=== PATIENT | male | born 1960 | race Two or more races ===

== ENCOUNTER 2025-06-07 01:02 | Emergency (ER) | payer OTHER, MEDICAID ==
[~2025-06-07] VITALS: Ht 170.2 cm; Wt 100.1 kg
[2025-06-07 02:14] LABS: Urine Protein, UAD Negative (Negative)
[2025-06-07] MEDS ORDERED: ZOFR4T PO (02:19)
[2025-06-07] MEDS ORDERED: IBUP-1455 PO (02:19)
[2025-06-07] MEDS ORDERED: CIPR-173 PO (02:19)
[2025-06-07] MEDS ORDERED: HYDR-4902 PO (02:19)
--- NOTE | 2025-06-07 02:20 | ED.PDOC ---
General HPI Comments This patient is a pleasant but morbidly obese 65-year-old male who arrives the ED today for evaluation of left-sided flank pain radiating into his abdominal region for the past two days. Patient states the symptoms came on and has been relatively unrelenting. Patient denies any fever nausea or vomiting. Patient does complain of flank pain concerns and mild urinary discomfort. Patient was hypertensive on arrival. Chief Complaint: Flank Pain Time Seen by MD: 01:28 Reviewed notes: Nurses Notes Allergies: Coded Allergies: NO KNOWN ALLERGIES (Unverified , 06/07/25) Home Meds Active Scripts Hydrocodone-Acetaminophen (Hydrocodone Bitartrate/AC 5-325 mg) 1 Tab Tab, 1 TAB PO Q6HP PRN, #10 TAB Prov:DIPESH VALENCIA [facility] 06/07/25 Ibuprofen Micronized (Ibuprofen) 800 Mg Tab, 800 MG PO Q8HP PRN, #20 TAB Prov:DIPESH VALENCIA [facility] 06/07/25 Ondansetron Odt 4MG Tab (ZOFRAN PO) 4 Mg Tb, 4 MG PO Q6HP PRN, #15 TAB ODT TAB-DISSOLVE IN MOUTH, THEN SWALLOW Prov:DIPESH VALENCIA [facility] 06/07/25 Ciprofloxacin Hcl (Cipro) 500 Mg Tab, 1 TAB PO BID for 7 Days, #14 TAB Prov:DIPESH VALENCIA [facility] 06/07/25 Information Source: Patient Mode of Arrival: Ambulatory Severity: Moderate Timing: Days Duration: Since onset Prehospital treatment: None Onset: Spontaneous Symptoms: Dysuria, Other (Left-sided flank pain) Location: Abdomen, (L)Flank Penile discharge: None Modifying factors: None associated signs and symptoms: Abdominal Pain, Flank Pain Past Medical History PAST MEDICAL HISTORY: Denies Surgical History: Denies all surgeries Family History Family History: Reviewed,noncontributory to illness, No family hx of Cancer, No family hx of DM, No family hx of Heart lalo, No family hx of HTN, No family hx ofKidney lalo, No family hx of Liver lalo, No family hx of Lung lalo, No family hx of Stroke Social History Smoker: Non-Smoker Alcohol: Denies ETOH Use Drugs: Denies Drug Use Lives In: Home Constitutional: denies: chills, diaphoresis, fatigue, fever, malaise, sweats, weakness, others EENTM: denies: blurred vision, double vision, ear bleeding, ear discharge, ear drainage, ear pain, ear ringing, eye pain, eye redness, hearing loss, mouth pain, mouth swelling, nasal discharge, nose bleeding, nose congestion, nose pain, photophobia, tearing, throat pain, throat swelling, voice changes, others Respiratory: denies: cough, hemoptysis, orthopnea, SOB at rest, shortness of breath, SOB with excertion, stridor, wheezing, others Cardiovascular: denies: chest pain, dizzy spells, diaphoresis, Dyspnea on exertion, edema, irregular heart beat, left arm pain, lightheadedness, palpitati ons, PND, syncope, others Gastrointestinal: reports: abdominal pain; denies: abdomen distended, blood streaked bowels, constipated, diarrhea, dysphagia, difficulty swallowing, hematemesis, melena, nausea, poor appetite, poor fluid intake, rectal bleeding, rectal pain, vomiting, others Genitourinary: reports: flank pain; denies: burning, dysuria, frequency, hematuria, incontinence, penile discharge, penile sore, pain, testicle pain, testicle swelling, urgency, others Neurological: denies: dizziness, fainting, headache, left sided numbness, left sided weakness, numbness, paresthesia, pre-existing deficit, right sided numbness, right sided weakness, seizure, speech problems, tingling, tremors, weakness, others Musculoskeletal: denies: back pain, gout, joint pain, joint swelling, muscle pain, muscle stiffness, neck pain, others Integumetry: denies: bruises, change in color, change in hair/nails, dryness, laceration, lesions, lumps, rash, wounds, others Allergic/Immunocompromised: denies: Difficulty Healing, Frequent Infections, Hives, Itching, others Hematologic/Lymphatic: denies: anemia, blood clots, easy bleeding, easy bruising, swollen glands, others Endocrine: denies: excessive hunger, excessive sweating, excessive thirst, excessive urination, flushing, intolerance to cold, intolerance to heat, un explained weight gain, unexplained weight loss, others Psychiatric: denies: anxiety, bipolar disorder, depression, hopeless, panic disorder, schizophrenia, sleepless, suicidal, others Physical Exam General Appearance: Moderate Distress (Moderate distress due to left-sided flank pain and abdominal pain concerns.) HEENT: Normal ENT Inspection, Pharynx Normal, TMs Normal Neck: Full Range of Motion, Non-Tender, Normal, Normal Inspection Respiratory: Chest Non-Tender, Lungs Clear, No Accessory Muscle Use, No Respiratory Distress, Normal Breath Sounds Cardiovascular: No Edema, No JVD, No Murmur, No Gallop, Normal Peripheral Pulses, Regular Rate/Rhythm Breast Exam: Deferred Gastrointestinal: Other (Left-sided flank pain radiating into the abdomen. Broad CVA tenderness to palpation. No signs of trauma. No pulsatile masses.) Genitalia: Deferred Pelvic: Deferred Rectal: Deferred Extremities: No calf tenderness, Normal inspection, Non-tender Neurologic: Alert Cerebellar Function: NOT DONE Reflexes: NOT DONE Skin: Dry, Normal Color, Warm Lymphatic: No Adenopathy Was a procedure done? Was a procedure done?: No Differential Diagnosis Kidney stone (Female): Other (Kidney stone, pyelonephritis, UTI, mus culoskeletal pain) X-Ray, Labs, Meds, VS Vital Signs Date Time Temp Pulse Resp B/P (MAP) Pulse Ox O2 Delivery O2 Flow Rate FiO2 06/07/25 01:04 97.2 74 18 157/95 96 97.2 Lab Test 06/07/25 02:00 Range/Units Urine Color Light-yellow Yellow Urine Clarity Clear Clear Urine pH 5.5 5.0-9.0 Urine Specific [place] 1.024 1.001-1.035 Urine Protein Negative Negative Urine Ketones Negative Negative Urine Blood Negative Negative /uL Urine Nitrite Negative Negative Urine Bilirubin Negative Negative Urine Urobilinogen Normal Negative mg/dL Urine Leukocyte Esterase Negative Negative /uL Urine RBC None seen 0 - 3 /hpf Urine Microscopic WBC 1 0-3 /HPF Urine Squamous Epithelial Cells Few <5 /hpf Urine Bacteria None seen None Seen /hpf Urine Mucus Few None Seen Urine Glucose Normal Normal mg/dL X-Ray, Labs, Meds, VS Comment Urinalysis was unremarkable for any UTI formation or pyelonephritis. CT study of the pelvis was pending at time of this note. Patient care is being transferred to Dr. Agustin who will review that study once returned. Time of 1ST Reevaluation: 02:17 Reevaluation 1ST: Improved Consultation: PCP Patient Education/Counseling: Diagnosis, Treatment Family Education/Counseling: Diagnosis, Treatment SEPSIS Sepsis Screen Date sepsis recognized/suspect: Jun 07, 2025 Time Sepsis recognized/suspect: 0107 Recent Procedure: No On Antibiotic Therapy: No Respiratory Rate >20: No Heart Rate >90: No Temp<36 C (96.8 F) or >38.3 C: No SBP <90 or MAP <65 mmHG: No New Acute Mental Status Change: No Is the patient on CPAP, BIPAP,: No Physician Orders Ct Ab Pel Wo Con-No Oral Or Iv (06/07/25 02:10) Vital Signs Date Time Temp Pulse Resp B/P (MAP) Pulse Ox O2 Delivery O2 Flow Rate FiO2 06/07/25 01:04 97.2 74 18 157/95 96 97.2 Departure 1 Departure Time of Disposition: 02:17 Impression: Primary Impression: Flank pain Disposition: HOME / SELF CARE / HOMELESS Condition: Stable Additional Instructions: Advised pain medication as needed for symptomatic relief. Good hydration and healthy nutrition throughout. e-Prescriptions Hydrocodone-Acetaminophen (Hydrocodone Bitartrate/AC 5-325 mg) 1 Tab Tab 1 TAB PO Q6HP PRN, #10 TAB Prov: DIPESH VALENCIA [facility] 06/07/25 Ibuprofen Micronized (Ibuprofen) 800 Mg Tab 800 MG PO Q8HP PRN, #20 TAB Prov: DIPESH VALENCIA [facility] 06/07/25 Ondansetron Odt 4MG Tab (ZOFRAN PO) 4 Mg Tb 4 MG PO Q6HP PRN, #15 TAB ODT TAB-DISSOLVE IN MOUTH, THEN SWALLOW Prov: DIPESH VALENCIA [facility] 06/07/25 Discharged With: Self, Friend Critical Care Note Critical Care Time?: No Stability Stability form required: No Heart Score Heart Score: Heart Score Response (Comments) Value History N/A 0 EKG N/A 0 Age N/A 0 Risk Factors N/A 0 Troponin N/A 0 Total 0 DIPESH VALENCIA PAC Jun 07, 2025 02:20
--- NOTE | 2025-06-07 03:02 | DVH ---
Exam: CT CT AB PEL WO CON-NO ORAL OR IV History: Left-sided flank pain Comparison Study: None Technique: Multidetector spiral CT of the abdomen was performed from lung bases to pubic symphysis. I maging was performed without IV contrast. Axial, coronal and sagittal multiplanar reformats were obta ined from the axial data set by the technologist. Radiation Dose : 1. Abdomen/Pelvis: CTDIvol 20.44 mGy, DLP 1238.25 mGy*cm. Findings: Evaluation of solid organs is limited due to lack of intravenous contrast use. Lung Bases: No acute or significant lung base finding. Chronic appearing pleural-based nodular foci w ithin the right lung base, at least 1 of which exhibits central calcification, measuring up to approx imately 2.6 cm in diameter. Normal heart size. No pleural or pericardial effusion. Liver: The liver is normal in size. No focal lesions. Gallbladder and Biliary Tree: Unremarkable Spleen: Unremarkable Pancreas: The pancreas is grossly normal in appearance. Adrenal Glands: Unremarkable Kidneys: Kidneys are grossly normal without calculi or hydronephrosis. Bladder: Grossly unremarkable for degree of distention. Bowel: The stomach is grossly normal in appearance. Diverticulosis coli without CT evidence of Acute diverticulitis. Small bowel and colon are otherwise normal in caliber and distribution. The appendix is not visualized; however, no secondary findings of acute appendicitis identified. Ascites: Absent Lymphadenopathy: No mesenteric, retroperitoneal or periportal lymphadenopathy. Abdominal Wall and Mesentery: Unremarkable. Vasculature: The visualized abdominal aorta is normal in size and caliber. Atherosclerotic vascular c alcifications. Evaluation of abdominal and pelvic vessels is limited due to lack of intravenous cont rast. Pelvic Organs: Unremarkable Musculoskeletal: No aggressive focal bony lesions, acute fractures or dislocation. IMPRESSION: 1. No acute abdominal or pelvic findings. 2. Chronic appearing pleural-based nodular foci within the right lung base, at least 1 of which exhib its central calcification, measuring up to approximately 2.6 cm in diameter. These may represent gra nulomas. Recommend correlation with prior imaging and/or follow-up CT chest in 3 months. 3. Diverticulosis coli without CT evidence of acute diverticulitis. Radiation optimization: All CT scans at this facility use at least one of these dose optimization fang hniques: automated exposure control mA and/or kV adjustment per patient size (includes targeted exam s where dose is matched to clinical indication) or iterative reconstruction.
[2025-06-07 04:11] VITALS: BP 167/94; PULSE 64; RESP 17; TEMP 97.9; O2SAT 95
[2025-06-07] MEDS: KETOROLAC TROMETH 60MG/2ML VIAL IM ONE (04:12)
== END 2025-06-07 04:48 | disposition home or self-care (01) ==
LOC: ER 01:02
DX: R10.9 Unspecified abdominal pain (principal)
CPT/HCPCS: 74176; 81001; 96372; 99285; J1885

== ENCOUNTER 2025-06-08 03:59 | Emergency (ER) | payer OTHER, MEDICAID ==
[~2025-06-08] VITALS: Ht 172.7 cm; Wt 101.7 kg
[~2025-06-08 03:59] MED LIST: HYDR-4902 PO; IBUP-1455 PO; ZOFR4T PO
[2025-06-08 04:42] LABS: Hematocrit 43.3 % (41.0-53.0); Hemoglobin 14.5 g/dL (13.5-17.5); Mean Corpuscular Hemoglobin 28.5 pg (28.0-32.0); Mean Corpuscular Volume 85.4 fL (80.0-100.0); Nucleated Red Blood Cells % 0.1 %
--- NOTE | 2025-06-08 05:02 | ED.PDOC ---
History of Present Illness HPI Comments 65 y/o obese M presents with c/c of left flank pain. Patient reports on returning to the ED following previous visit, yesterday, for same pain, which radiates to his LLQ. Significant history of kidney stones. He states on previous CT scan showing no kidney stones or pertinent findings. Denies any fever, chil ls, nausea, vomiting, urinary problems, or further acute symptoms. Chief Complaint: Flank Pain Time Seen by MD: 04:30 Reviewed Notes: Nurses Notes, Medications, Allergies Allergies: Coded Allergies: NO KNOWN ALLERGIES (Unverified , 06/07/25) Home Meds Active Scripts Hydrocodone-Acetaminophen (Hydrocodone Bitartrate/AC 5-325 mg) 1 Tab Tab, 1 TAB PO Q6HP PRN, #10 TAB Prov:DIPESH VALENCIA [facility] 06/07/25 Ibuprofen Micronized (Ibuprofen) 800 Mg Tab, 800 MG PO Q8HP PRN, #20 TAB Prov:DIPESH VALENCIA [facility] 06/07/25 Ondansetron Odt 4MG Tab (ZOFRAN PO) 4 Mg Tb, 4 MG PO Q6HP PRN, #15 TAB ODT TAB-DISSOLVE IN MOUTH, THEN SWALLOW Prov:DIPESH VALENCIA [facility] 06/07/25 Information Source: Patient Mode of Arrival: Ambulatory Severity: Moderate Timing: Hours Duration: Since onset Past Medical History PAST MEDICAL HISTORY: Kidney Stones Surgical History: Denies all surgeries Family History Family History: Reviewed,noncontributory to illness, No family hx of Cancer, No family hx of DM, No family hx of Heart lalo, No family hx of HTN, No family hx ofKidney lalo, No family hx of Liver lalo, No family hx of Lung lalo, No family hx of Stroke Social History Smoker: Non-Smoker Alcohol: Denies ETOH Use Drugs: Denies Drug Use Lives In: Home All Other Systems: Reviewed and Negative (As per HPI) Physical Exam General Appearance: Mild Distress, Obese HEENT: Normal ENT Inspection, Pharynx Normal, TMs Normal Neck: Full Range of Motion, Non-Tender, Normal, Normal Inspection Respiratory: Chest Non-Tender, Lungs Clear, No Accessory Muscle Use, No Respiratory Distress, Normal Breath Sounds Cardiovascular: No Edema, No JVD, No Murmur, No Gallop, Normal Peripheral Pulses, Regular Rate/Rhythm Breast Exam: Deferred Gastrointestinal: LLQ (tenderness ), No Organomegaly, No Pulsatile Mass, Normal Bowel Sounds, Soft, Tenderness (LLQ) Genitalia: Deferred Pelvic: Deferred Rectal: Deferred Extremities: No calf tenderness, Normal capillary refill, Normal inspection, Normal range of motion, Non-tender, No pedal edema Musculoskeletal : Apperance: Normal Neurologic: Alert, procedure tech II-XII nml as Tested, No Motor Deficits, Normal Affect, Normal Mood, No Sensory Deficits Cerebellar Function: Normal Reflexes: Normal Skin: Dry, Normal Color, Warm Lymphatic: No Adenopathy Was a procedure done? Was a procedure done?: No Differential Dx Considerations may include: musculoskeletal pain, UTI, kidney stones, diverticulitis, among others X-Ray, Labs, Meds, VS Vital Signs Date Time Temp Pulse Resp B/P (MAP) Pulse Ox O2 Delivery O2 Flow Rate FiO2 06/08/25 04:02 97.7 69 16 149/101 97 97.7 Lab Test 06/08/25 04:35 06/08/25 04:18 Range/Units Urine Color Light-yellow Yellow Urine Clarity Clear Clear Urine pH 5.5 5.0-9.0 Urine Specific [place] 1.017 1.001-1.035 Urine Protein Negative Negative Urine Ketones Negative Negative Urine Blood Negative Negative /uL Urine Nitrite Negative Negative Urine Bilirubin Negative Negative Urine Urobilinogen Normal Negative mg/dL Urine Leukocyte Esterase Negative Negative /uL Urine RBC 1 0 - 3 /hpf Urine Microscopic WBC < 1 0-3 /HPF Urine Squamous Epithelial Cells None seen <5 /hpf Urine Bacteria None seen None Seen /hpf Urine Glucose Normal Normal mg/dL White Blood Count 3.6 L 4.4-10.8 10^3/uL Red Blood Count 5.07 4.5-5.90 10^6/uL Hemoglobin 14.5 13.5-17.5 g/dL Hematocrit 43.3 41.0-53.0 % Mean Corpuscular Volume 85.4 80.0-100.0 fL Mean Corpuscular Hemoglobin 28.5 28.0-32.0 pg Mean Corpuscular Hemoglobin Concent 33.4 32.0-36.0 g/dL Red Cell Distribution Width 14.3 11.8-14.3 % Platelet Count 240 140-450 10^3/uL Mean Platelet Volume 6.9 6.9-10.8 fL Neutrophils (%) (Auto) 32.0 L 37.0-80.0 % Lymphocytes (%) (Auto) 52.9 H 10.0-50.0 % Monocytes (%) (Auto) 9.1 0.0-12.0 % Eosinophils (%) (Auto) 4.9 0.0-7.0 % Basophils (%) (Auto) 1.1 0.0-2.0 % Neutrophils # (Auto) 1.2 L 1.6-8.6 10 ^3/uL Lymphocytes # (Auto) 1.9 0.4-5.4 10 ^3/uL Monocytes # (Auto) 0.3 0-1.3 10 ^3/uL Eosinophils # (Auto) 0.2 0-0.8 10 ^3/uL Basophils # (Auto) 0 0-0.2 10 ^3/uL Nucleated Red Blood Cells 0.1 % Sodium Level 140 136-145 mmol/L Potassium Level 4.0 3.5-5.1 mmol/L Chloride Level 105 98-107 mmol/L Carbon Dioxide Level 26 20-31 mmol/L Anion Gap 9 5-15 Blood Urea Nitrogen 22 9-23 mg/dL Creatinine 1.23 0.700-1.30 mg/dL Glomerular Filtration Rate Calc 65 >90 mL/min BUN/Creatinine Ratio 17.9 10.0-20.0 Serum Glucose 96 74-106 mg/dL Calcium Level 9.1 8.7-10.4 mg/dL Total Bilirubin 0.5 0.2-1.0 mg/dL Aspartate Amino Transferase (AST) 16 13-40 U/L Alanine Aminotransferase (ALT) 18 7-40 U/L Alkaline Phosphatase 44 L 46-116 U/L Total Protein 7.3 5.7-8.2 g/dL Albumin 4.2 3.2-4.8 g/dL Lipase 62 H 12-53 U/L Current Medications Medications (Trade) Dose Ordered Sig/Antonio Route Start Time Stop Time Status Last Admin Sodium Chloride 1,000 ml @ 1,000 mls/hr Q1H ONCE IV 06/08/25 04:45 06/08/25 05:44 DC 06/08/25 09:23 Time of 1ST Reevaluation: 05:00 Reevaluation 1ST: Unchanged Patient Education/Counseling: Diagnosis, Treatment Family Education/Counseling: No Family Present SEPSIS Sepsis Screen Date sepsis recognized/suspect: Jun 08, 2025 Time Sepsis recognized/suspect: 0408 Recent Procedure: No On Antibiotic Therapy: No Respiratory Rate >20: No Heart Rate >90: No Temp<36 C (96.8 F) or >38.3 C: No SBP <90 or MAP <65 mmHG: No New Acute Mental Status Change: No Is the patient on CPAP, BIPAP,: No Physician Orders Ct Ab Pel With Iv Con Only (06/08/25 04:38) Vital Signs Date Time Temp Pulse Resp B/P (MAP) Pulse Ox O2 Delivery O2 Flow Rate FiO2 06/08/25 04:02 97.7 69 16 149/101 97 97.7 Laboratory Tests Test 06/08/25 04:18 White Blood Count 3.6 10^3/uL (4.4-10.8) L Medications Medications Dose Ordered Sig/Antonio Route Start Time Stop Time Status Last Admin Dose Admin Sodium Chloride 1,000 ml @ 1,000 mls/hr Q1H ONCE IV 06/08/25 04:45 06/08/25 05:44 DC 06/08/25 09:23 Departure 1 Departure Time of Disposition: 09:33 (Patient's workup is benign. Patient is feeling better and like to go home. We will discharge patient home with outpatient follow up) Impression: Primary Impression: Flank pain Disposition: 01 HOME / SELF CARE / HOMELESS Condition: Stable Additional Instructions: Your workup today was benign. You can take Tylenol or Motrin as needed for pain. You should follow up with your regular doctor within 1 week. You should stay well rested and well hydrated. If your symptoms worsen or you have any other concerns please return to the emergency room. Discharged With: Self Critical Care Note Critical Care Time?: No Stability Stability form required: No Heart Score Heart Score: Heart Score Response (Comments) Value History N/A 0 EKG N/A 0 Age N/A 0 Risk Factors N/A 0 Troponin N/A 0 Total 0 I personally scribed for LION DELANEY MD ([email or web address]) on 06/08/25 at 05:02. Electronically submitted by Ruddy Ni [email or web address]). LION DELANEY MD Jun 08, 2025 05:02 JAIRON CARL MD Jun 08, 2025 09:34
[2025-06-08 05:04] LABS: Alanine Aminotransferase 18 U/L (7-40); Albumin 4.2 g/dL (3.2-4.8); Anion Gap 9 (5-15); BUN/Creatinine Ratio 17.9 (10.0-20.0); Bilirubin, Total 0.5 mg/dL (0.2-1.0); Blood Urea Nitrogen 22 mg/dL (9-23); Calcium 9.1 mg/dL (8.7-10.4); Carbon Dioxide 26 mmol/L (20-31); Chloride 105 mmol/L (98-107); Glucose 96 mg/dL (74-106); Potassium 4.0 mmol/L (3.5-5.1); Sodium 140 mmol/L (136-145); Total Protein 7.3 g/dL (5.7-8.2)
[2025-06-08 05:14] LABS: Alkaline Phosphatase 44 U/L (46-116); Lipase 62 U/L (12-53)
[2025-06-08 06:34] LABS: Urine Protein, UAD Negative (Negative)
--- NOTE | 2025-06-08 08:02 | DVH ---
Exam: CT CT AB PEL WITH IV CON ONLY History: LLQ pain r/o diverticulitis Comparison Study: CT CT AB PEL WO CON-NO ORAL OR IV on DOS: 06/07/25 Contrast: Type of contrast: Omnipaque 300 Contrast injected: 100 mL Contrast wasted: 0 TECHNIQUE: CT of the abdomen pelvis was performed with intravenous contrast. Coronal and sagittal re formatted images are provided. Radiation Dose Information: CT Dose: CTDI volume is 22.74 mGy. Dose-length product is 3.92 mGy*cm FINDINGS: Lung Bases: There are nodular soft tissue subpleural densities in the right lung base abutting the ri ght hemidiaphragm, one of which is calcified. Normal heart size. No pleural or pericardial effusion. Liver: The liver is normal in size. No focal lesions. Normal hepatic vascular enhancement. Diffusely hypoattenuating liver parenchyma consistent with hepatic steatosis. Gallbladder and Biliary Tree: The gallbladder is unremarkable. No biliary ductal dilatation. Spleen: Unremarkable Pancreas: The pancreas is normal in appearance without focal lesions or abnormal enhancement. Adrenal Glands: Unremarkable Kidneys: Kidneys demonstrate normal symmetric enhancement without focal lesions, calculi or hydroneph rosis. Bladder: Unremarkable Bowel: Small hiatal hernia. Small bowel and colon are normal in caliber and distribution. The append ix is normal in caliber. There is sigmoid diverticulosis without acute diverticulitis. The appendix is visualized. No inflammatory changes associated with the appendix. Peritoneum: No pneumoperitoneum. No ascites. Lymphadenopathy: No mesenteric, retroperitoneal or periportal lymphadenopathy. Abdominal Wall and Mesentery: Unremarkable. Vasculature: The visualized abdominal aorta is normal in size and caliber. Abdominal and pelvic vess els demonstrate normal enhancement. Pelvic Organs: Unremarkable Musculoskeletal: No aggressive focal bony lesions, acute fractures or dislocation. Soft tissues: Unremarkable. IMPRESSION: 1. No acute intra-abdominal or pelvic process. 2. Sigmoid diverticulosis without acute diverticulitis. 3. Nodular soft tissue densities in the right lung base abutting the right hemidiaphragm. Recommen d follow-up CT chest in 3 months to ensure stability or resolution.
[2025-06-08] MEDS: SODIUM CHLORIDE 0.9% 1,000 ML IV ONE (09:23)
[2025-06-08] MEDS: IOHEXOL 300 MG/ML 100ML BOTTLE IJ ONE (09:24)
[2025-06-08] MEDS: KETOROLAC TROMETH 30 MG/ML 1ML VIAL IV ONE (09:37)
[2025-06-08 11:06] VITALS: BP 136/78; PULSE 77; RESP 16; TEMP 98.7; O2SAT 97
== END 2025-06-08 11:07 | disposition home or self-care (01) ==
LOC: ER 03:59
DX: R10.32 Left lower quadrant pain (principal); Z87.442 Personal history of urinary calculi
CPT/HCPCS: 36415; 74177; 80053; 81001; 83690; 85025; 96361; 96374; 99285; J1885; J7030; Q9967

== ENCOUNTER 2025-06-19 03:19 | Emergency (ER) | payer OTHER, MEDICAID ==
[~2025-06-19] VITALS: Ht 172.7 cm; Wt 97.7 kg
[2025-06-19] MEDS ORDERED: CAPS0.0210 EX (04:43)
[2025-06-19 05:06] VITALS: TEMP 98.3
[2025-06-19 05:33] VITALS: PULSE 66; RESP 12; O2SAT 99
[2025-06-19 05:52] VITALS: BP 165/98; PULSE 66; RESP 14; O2SAT 96
[2025-06-19] MEDS: HYDROmorphone HCL 2 MG/ML VL/or syr IM ONE (05:52)
--- NOTE | 2025-06-19 11:38 | ED.PDOC ---
History of Present Illness HPI Comments 65-year-old male who came to ER for left flank pains. Patient has been having shingles on the left side of his abdomen/left flank with a past 2 weeks. Patient has been experiencing burning/ sharp pains accompanying it. Patient currently on the 3rd day of antiviral medications. REVIEW OF SYSTEMS: General: No fever, no chills, or fatigue HEENT: No sore throat, no earache, no congestion, no neck pain. Cardiac: No chest pain. No palpitations. Lungs: No shortness of breath, no cough. GI: No nausea, no vomiting, no diarrhea, no constipation, no abdominal pain : No dysuria, frequency, or urgency. No hematuria. Musculoskeletal: No joint pain , no joint swelling, no extremity edema. Skin: (+) rash left abdomen, no itching. Neuro: No headache, no dizziness, no weakness EXAM: General: Awake, alert and oriented. No acute distress. Skin: Skin in warm, dry and intact. Appropriate color for ethnicity. HEENT: The head is normocephalic and atraumatic. Conjunctivae are clear without exudates or hemorrhage. Sclera is non-icteric. EOM are intact. No signs of nystagmus. Eyelids are normal in appearance without swelling or lesions. Oral mucosa is pink and moist Neck: The neck is supple with normal range of motion. No JVD. Cardiac: Heart rate and rhythm are normal. No murmurs, gallops, or rubs are auscultated. Respiratory: No signs of respiratory distress. Lung sounds are clear in all lobes bilaterally without rales, rhonchi, or wheezes. Abdominal: Abdomen is soft, non-tender without distention. Bowel sounds are present and normoactive in all four quadrants. Extremities: Upper and lower extremities are atraumatic in appearance without deformity or edema. Neurological: The patient is awake, alert and oriented to person, place, and time with normal speech. Speech is clear. There is no facial asymmetry. Psychiatric: Appropriate mood and affect. Good judgement and insight Chief Complaint: Flank Pain Time Seen by MD: 04:32 Reviewed Notes: Nurses Notes Allergies: Coded Allergies: NO KNOWN ALLERGIES (Unverified , 06/07/25) Home Meds Active Scripts Hydrocodone-Acetaminophen (Hydrocodone Bitartrate/AC 5-325 mg) 1 Tab Tab, 1 TAB PO Q6HP PRN, #10 TAB Prov:DIPESH VALENCIA PAC 06/07/25 Ibuprofen Micronized (Ibuprofen) 800 Mg Tab, 800 MG PO Q8HP PRN, #20 TAB Prov:DIPESH VALENCIA [facility] 06/07/25 Ondansetron Odt 4MG Tab (ZOFRAN PO) 4 Mg Tb, 4 MG PO Q6HP PRN, #15 TAB ODT TAB-DISSOLVE IN MOUTH, THEN SWALLOW Prov:DIPESH VALENCIA [facility] 06/07/25 Information Source: Patient Mode of Arrival: Ambulatory Past Medical History PAST MEDICAL HISTORY: Kidney Stones Surgical History: Denies all surgeries Family History Family History: Reviewed,noncontributory to illness, No family hx of Cancer, No family hx of DM, No family hx of Heart lalo, No family hx of HTN, No family hx ofKidney lalo, No family hx of Liver lalo, No family hx of Lung lalo, No family hx of Stroke Social History Smoker: Non-Smoker Alcohol: Denies ETOH Use Drugs: Denies Drug Use Lives In: Home Was a procedure done? Was a procedure done?: No Differential Dx Considerations may include: Viral syndrome, shingles, dermatomal pain, viral exanthem X-Ray, Labs, Meds, VS Vital Signs Date Time Temp Pulse Resp B/P (MAP) Pulse Ox O2 Delivery O2 Flow Rate FiO2 06/19/25 03:20 97.9 75 18 156/95 96 97.9 Time of 1ST Reevaluation: 04:28 Reevaluation 1ST: Unchanged Patient Education/Counseling: Need For Follow Up Family Education/Counseling: No Family Present SEPSIS Sepsis Screen Date sepsis recognized/suspect: Jun 19, 2025 Time Sepsis recognized/suspect: 0328 Recent Procedure: No On Antibiotic Therapy: No Respiratory Rate >20: No Heart Rate >90: No Temp<36 C (96.8 F) or >38.3 C: No SBP <90 or MAP <65 mmHG: No New Acute Mental Status Change: No Is the patient on CPAP, BIPAP,: No Vital Signs Date Time Temp Pulse Resp B/P (MAP) Pulse Ox O2 Delivery O2 Flow Rate FiO2 06/19/25 03:20 97.9 75 18 156/95 96 97.9 Departure 1 Departure Time of Disposition: 04:43 Impression: Primary Impression: Shingles Disposition: 01 HOME / SELF CARE / HOMELESS Condition: Stable Additional Instructions: ED DISCHARGE INSTRUCTIONS Instructions: Please read all instructions provided in this packet carefully. Apply capsaicin cream to rash 3 times daily as needed for pain. Continue antiviral medication and other medications for pain. Although you have been discharged from the Emergency Department, this does not mean that you have a "clean bill of health".. It is possible that you are in the process of developing a serious illness. This is why you must return to the ED without fail if any new or worsening symptoms (especially if your symptoms include chest pain, trouble breathing, abdominal pain, fever, headache, confusion, trouble seeing, or trouble walking) It is also very important that you see a primary care provider (PCP) within the next 1-3 days to follow up. If you are unable to get an appointment, return to the ED for re-evaluation. e-Prescriptions Capsaicin (Capsaicin) 0.025 % Cre 0.025 % EX TID for 15 Days, #1 BOT Prov: YANNICK WONG MD 06/19/25 Critical Care Note Critical Care Time?: No Stability Stability form required: No Heart Score Heart Score: Heart Score Response (Comments) Value History N/A 0 EKG N/A 0 Age N/A 0 Risk Factors N/A 0 Troponin N/A 0 Total 0 I personally scribed for YANNICK WONG MD ([email or web address]) on 06/19/25 at 04:32. Electronically submitted by Jason Kelley ([email or web address]). YANNICK WONG MD Jun 19, 2025 04:32
== END 2025-06-19 06:09 | disposition home or self-care (01) ==
LOC: ER 03:19
DX: B02.9 Zoster without complications (principal); Z87.442 Personal history of urinary calculi; Z79.899 Other long term (current) drug therapy
CPT/HCPCS: 96372; 99283; J1171